=== PATIENT | male | born 1990 | race Caucasian/White ===

== ENCOUNTER 2023-07-07 14:57 | Emergency (ER) | payer OTHER ==
[~2023-07-07] VITALS: Ht 172.7 cm; Wt 68.0 kg
[~2023-07-07 14:57] MED LIST: BETAMETHASONE O15 GM TP; KETOCONAZOLE 1120 ML TP; LIBRIUM 25M25 MG/CAP PO; PROTONIX TR40 M1 PO
[2023-07-07] MEDS ORDERED: CYCLOBENZAPRINE10 M1 PO (15:43)
[2023-07-07 15:55] VITALS: BP 150/105
== END 2023-07-07 15:55 | disposition home or self-care (01) ==
LOC: ED 14:57
DX: S20.211A Contusion of right front wall of thorax, initial encounter (principal); I10 Essential (primary) hypertension; F17.210 Nicotine dependence, cigarettes, uncomplicated; W00.0XXA Fall on same level due to ice and snow, initial encounter